=== PATIENT | male | born 1980 | race American Indian/Alaskan Native ===

== ENCOUNTER 2016-11-30 20:24 | Emergency (ER) | payer MEDICAID, OTHER ==
[2016-11-30 20:31] VITALS: BMI 35.2
[2016-11-30 21:30] LABS: BASO # 0.1 K/uL (0.0-0.2); BASO % 0.7 % (0.0-2.0); EOS # 0.2 K/uL (0.0-0.7); EOS % 1.9 % (0.0-4.0); HEMATOCRIT 43.2 % (35.0-51.0); LYMPH # 2.8 K/uL (1.0-4.3); LYMPH % 24.7 % (20.0-40.0); MEAN CELL VOLUME 86.9 fL (80.0-94.0); MEAN CORPUSCULAR HEMOGLOBIN 28.4 pg (27.0-31.0); MEAN CORPUSCULAR HGB CONC 32.7 g/dL (33.0-37.0); MEAN PLATELET VOLUME 9.8 fL (7.2-11.7); MONO # 0.5 K/uL (0.0-0.8); MONO % 4.6 % (0.0-10.0); NRBC % 0.1 % (0.0-2.0); RED CELL DISTRIBUTION WIDTH 15.2 % (11.5-14.5); WHITE BLOOD COUNT 11.4 K/uL (4.8-10.8)
[2016-11-30 21:32] LABS: CHLORIDE 100 mmol/L (98-107)
[2016-11-30 21:33] LABS: POTASSIUM 4.3 mmol/L (3.6-5.2); SODIUM 137 mmol/L (132-148)
[2016-11-30 21:35] LABS: ALB/GLOB RATIO 1.8 (1.0-2.1); ALKALINE PHOSPHATASE 62 U/L (38-126); AST/SGOT 32 U/L (17-59); BILIRUBIN,TOTAL 0.4 mg/dL (0.2-1.3); BLOOD UREA NITROGEN 19 mg/dL (9-20); CARBON DIOXIDE 12 mmol/L (22-30); GFR AFRICAN-AMERICAN 55; GLUCOSE,RANDOM 167 mg/dL (75-110); TOTAL PROTEIN 7.5 g/dL (6.3-8.3)
[2016-11-30 21:36] LABS: ALCOHOL SERUM < 10 mg/dl (0-10); ALT/SGPT 33 U/L (21-72); CALCIUM 9.5 mg/dl (8.6-10.4)
[2016-11-30 22:14] LABS: RBC URINE 7 /hpf (0-3); URINE BACTERIA RARE (<OCC); URINE BILIRUBIN NEGATIVE (NEGATIVE); URINE BLOOD 3+ (NEGATIVE); URINE COLOR Yellow (YELLOW); URINE GLUCOSE (UA) NORMAL (Normal); URINE KETONE NEGATIVE (NEGATIVE); URINE LEUKOCYTE ESTERASE NEG Leu/uL (Negative); URINE PROTEIN 2+ mg/dL (NEGATIVE); URINE UROBILINOGEN NORMAL mg/dL (0.2-1.0); WBC URINE 1 /hpf (0-5)
--- NOTE | 2016-11-30 23:21 | C.PDOC ---
History Of Present Illness Patient is a 36 y/o male who presents to the ED by [facility] and EMS s/p found outside in the street. Patient exhibits disruptive behavior and is vile with staff. Patient required sedation. No other physical complaints at this time. Chief Complaint (Nursing): Substance Abuse History Per: Patient History/Exam Limitations: intoxication Current Symptoms Are (Timing): Still Present Recent travel outside of the [place]: No Past Medical History Reviewed: Historical Data, Nursing Documentation, Vital Signs Vital Signs: Last Vital Signs Temp 98 F 12/01/16 05:21 Pulse 100 H 12/01/16 05:21 Resp 20 12/01/16 05:21 BP 128/88 12/01/16 05:21 Pulse Ox 95 12/01/16 05:29 - Medical History PMH: Asthma, HTN (non compliant) Denies: Depression, HIV Surgical History: No Surg Hx - [facility] Procedures INJECT/INFUSE NEC (04/21/13) Family History: States: Unknown Family Hx, Hypertension - Social History Hx Alcohol Use: Yes Hx Substance Use: Yes Review Of Systems Constitutional: Negative for: Fever, Chills Neurological: Positive for: Incoordination, Altered Mental Status Physical Exam - Physical Exam Appears: Combative, Agitated Skin: Normal Color, Warm, Dry Head: Atraumatic, Normacephalic Oral Mucosa: Moist Chest: Symmetrical Cardiovascular: Rhythm Regular, No Murmur Respiratory: Normal Breath Sounds, No Rales, No Rhonchi, No Stridor ED Course And Treatment - Laboratory Results Result Diagrams: 11/30/16 21:21 11/30/16 21:21 O2 Sat by Pulse Oximetry: 95 Progress Note: Plan: Ativan and Haldol administered. Crisis notified. Reevaluation Time: 04:55 (Patient calm and awake; admits to drug use. ) Reassessment Condition: Improved Medical Decision Making Medical Decision Making: Plan: Haldol and Ativan administered. Disposition - Disposition Referrals: [facility] [Outside] [facility] [Outside] Disposition: HOME/ ROUTINE Disposition Time: 05:00 Condition: IMPROVED Additional Instructions: Thank you for letting us take care of you today. Your provider was Dr. Moraes. You were treated for drug abuse. The emergency medical care you received today was directed at your acute symptoms. If you were prescribed any medication, please fill it and take as directed. It may take several days for your symptoms to resolve. Return to the Emergency Department if your symptoms worsen, do not improve, or if you have any other problems. Please contact your doctor or call one of the physicians/clinics you have been referred to that are listed on the Patient Visit Information form that is included in your discharge packet. Bring any paperwork you were given at discharge with you along with any medications you are taking to your follow up visit. Our treatment cannot replace ongoing medical care by a primary care provider (PCP) outside of the emergency department. Thank you for allowing the [facility] team to be part of your care today. Follow up with your doctor or the clinic in 3-4 days for outpatient care. Instructions: Polysubstance Abuse (ED) Forms: [employer] (Finnish) - Clinical Impression Clinical Impression: Drug abuse - Scribe Statement The provider has reviewed the documentation as recorded by the Scribe Fabiola Ervin All medical record entries made by the Scribe were at my direction and personally dictated by me. I have reviewed the chart and agree that the record accurately reflects my personal performance of the history, physical exam, medical decision making, and the department course for this patient. I have also personally directed, reviewed, and agree with the discharge instructions and disposition.
[2016-12-01 03:18] VITALS: PULSE 100; RESP 20
[2016-12-01 05:23] VITALS: BP 128/88; TEMP 98
[2016-12-01 05:29] VITALS: O2SAT 95
== END 2016-12-01 05:32 | disposition home or self-care (01) ==
LOC: C.ER 20:24
DX: F19.10 Other psychoactive substance abuse, uncomplicated (principal)
CPT/HCPCS: 80053; 80320; 80324; 80345; 80346; 80349; 80353; 80358; 80361; 81001; 82948; 83992; 85025; 96372; 99285; J1630; J2060